=== PATIENT | female | born 1980 | race Caucasian/White ===

== ENCOUNTER 2019-07-26 17:16 | Inpatient (IN) | payer BC, OTHER, SELFPAY ==
[2019-07-26] VITALS (16 sets, daily range): BP systolic 67–93; BP diastolic 40–63; PULSE 91–107; RESP 17–25; TEMP 36.9; O2SAT 88–100; BMI 31.6
--- NOTE | ~2019-07-26 | XR_ITS ---
XR chest 2V 07/26/2019 18:53 Indication: Shortness of breath. Pneumonia. Productive cough. Procedure: 2 view chest Comparison: 12/31/2018 Findings: There is bibasilar airspace disease, compatible with pneumonia. No pleural effusion, edema or pneumothorax. Heart size normal. No acute osseous abnormality. Impression: 1: Bibasilar airspace disease, compatible with pneumonia. Reviewed, dictated and finalized at location A. [facility] Impression: 1: Bibasilar airspace disease, compatible with pneumonia.
--- NOTE | 2019-07-26 17:55 | ECG_ITS ---
Measurements Intervals [place] Rate: 81 P: 39 KS: 136 QRS: 44 QRSD: 89 T: 85 QT: 360 QTc: 420 Interpretive Statements SINUS RHYTHM INFERIOR INFARCT, AGE INDETERMINATE NONSPECIFIC ST & T-WAVE ABNORMALITY- LATERAL LEADS BASELINE ARTIFACT- V6 ABNORMAL ECG Electronically Signed On 07-26-2019 19:43:23 [employer]ACH[employer] by Dixon Rizzo D.O.
--- NOTE | 2019-07-26 17:56 | ED.SOB ---
HPI - SOB/Dyspnea General Chief Complaint: Shortness of Breath/Dyspnea Stated Complaint: feel like I have pneumonia Time Seen by Provider: 07/26/19 17:42 Source: patient Mode of arrival: ambulatory Limitations: no limitations History of Present Illness HPI Narrative: Patient is a 39-year-old female who presents to the emergency department with complaint of cough and shortness of breath. Patient reports onset of symptoms approximately 5 days ago. Patient reports associated headache, fatigue, subjective fever, chills, sweats. Patient reports having had some weight gain which prompted increasing her diuretic somewhat recently. Patient states she now has been noticing decreased urine output. She reports some decrease in her oral intake. Patient has known history of congestive heart failure and pulmonary hypertension as well as mitral regurgitation. MD elicited complaint: shortness of breath and cough Pertinent past history: asthma, congestive heart failure and pneumonia Onset (ago): day(s) (5) Timing: constant Known history of: asthma, congestive heart failure and other (Pneumonia, pulmonary hypertension) Associated symptoms: fever and cough Related Data Home oxygen amount: none Home Medications Medication Instructions Recorded Confirmed carvedilol 07/26/19 Allergies Allergy/AdvReac Type Severity Reaction Status Date / Time latex Allergy Mild RASH Verified 07/26/19 17:49 onion Allergy Mild Itching Verified 07/26/19 17:49 azithromycin Allergy Unknown Nausea Verified 07/26/19 17:49 chlorpheniramine Allergy Unknown insomnia Verified 07/26/19 17:49 [Scot-Tussin DM] dextromethorphan Allergy Unknown insomnia Verified 07/26/19 17:49 [Robafen DM Cough-Chest Congest] erythromycin base Allergy Unknown Nausea Verified 07/26/19 17:49 guaifenesin Allergy Unknown insomnia Verified 07/26/19 17:49 minocycline Allergy Unknown upset Verified 07/26/19 17:49 stomach Penicillins Allergy Unknown Mouth sore Verified 07/26/19 17:49 rabeprazole Allergy Unknown Nausea Verified 07/26/19 17:49 Influenza Virus Vaccines AdvReac Unknown NAUSEA/SWEA Verified 07/26/19 17:49 TING Cat Dander Allergy Severe Anaphylactic Uncoded 07/26/19 17:49 Shock Review of Systems Review of Systems: All systems reviewed & are unremarkable except as noted in HPI and below Constitutional: Constitutional: Reports chills, Reports excessive sweating, Reports fatigue, Reports fever(s), Reports headache(s) and Reports weakness Respiratory: Respiratory: Reports cough and Reports dyspnea PMFSH Past Medical History Medical History (Updated 07/26/19 @ 21:11 by Silvia Silver MD) ADHD CHF (congestive heart failure) Gastro-esophageal reflux disease without esophagitis Mitral regurgitation Moderate persistent asthma with (acute) exacerbation Pneumonia (~05/11/19) Pulmonary hypertension Syringomyelia and syringobulbia Surgical History Surgical History (Updated 07/26/19 @ 18:07 by Silvia Silver MD) Hx of bilateral breast reduction surgery Social History Social History (Updated 07/26/19 @ 18:07 by Silvia Silver MD) Smoking status: Current every day smoker Alcohol intake: never Gender identity (if verbalized by the patient): Female Exam Const: General: cooperative, no acute distress and alert Nutritional Appearance: well nourished Orientation/consciousness: patient oriented x3 Limitations: no limitations HENMT: Mouth: Yes lip normal and Yes moist mucous membranes Resp: Effort & Inspection: normal respiratory effort Auscultation: rhonchi lower bilaterally and diminished lung sounds bilateral throughout Cardio: Rate: regular rate Rhythm: regular rhythm Heart sounds: Murmur heart sound present Peripheral pulses: dorsalis pedis present bilateral 2+ GI: GI Palp: Yes Soft to palpation and No Tenderness to palpation present (GI) Auscultation: normal bowel sounds Skin: General skin exam: normal color Jose A
[2019-07-26] MEDS: LACTATED RINGERS 1,000 ML 999 ML (18:12)
[2019-07-26 19:04] LABS: Alanine Aminotransferase 16 U/L (4-35); Albumin Level 3.4 g/dL (3.5-5.1); Alkaline Phosphatase 93 U/L (38-126); Aspartate Amino Transferase 25 U/L (14-36); Bilirubin,Total 0.5 mg/dL (0.2-1.3); Blood Urea Nitrogen 15 mg/dL (7-17); Calcium 8.3 mg/dL (8.4-10.2); Carbon Dioxide 28 mmol/L (22-30); Chloride 94 mmol/L (98-107); Estimated CRCL calculation 49 ml/min; Estimated Glomerular Filt Rate 46; Glucose 119 mg/dL (65-105); Potassium 3.3 mmol/L (3.4-5.0); Sodium 135 mmol/L (137-145); Troponin I < 0.012 ng/mL (0.000-0.034)
[2019-07-26 19:05] LABS: Lactic Acid 1.4 mmol/L (0.7-2.1)
[2019-07-26 19:06] LABS: CRP 22.9 mg/dL (<1.0)
[2019-07-26 19:09] LABS: Basophils Percent Auto 0.2 % (0.2-1.2); Eosinophils Percent Auto 0.1 % (0-4.4); Hematocrit 39.5 % (37.0-47.0); Hemoglobin 12.7 g/dL (12.0-15.0); Immature Granulocyte Absolute 0.06 K/mm3 (0.00-0.031); Immature Granulocyte Percent A 0.5 % (0-0.5); Lymphocytes Absolute Auto 1.67 K/mm3 (0.9-3.2); Mean Corpuscular HGB Conc 32.2 g/dl (32-36); Mean Corpuscular Hemoglobin 30.8 pg (26-34); Mean Corpuscular Volume 95.6 fl (80-100); Mean Platelet Volume 11.6 fl (7.4-10.4); Monocytes Absolute Auto 0.8 K/mm3 (0.1-0.6); Monocytes Percent Auto 6.2 % (2.6-8.5); Neutrophils Absolute Auto 10.3 K/mm3 (1.3-6.7); Platelet Count Result 192 k/mm3 (150-375); Red Blood Count 4.13 M/mm3 (4.2-5.4); Red Cell Distribution Width 12.6 % (11.5-14.5); White Blood Count 12.8 K/mm3 (4.5-10.0)
[2019-07-26 19:21] LABS: INR 0.9; Prothrombin Time 11.6 Seconds (11.1-14.7)
[2019-07-26 19:25] LABS: Add Urine Microscopic? YES; Appearance Urine Cloudy (Clear); Bacteria Urine Trace /hpf; Bilirubin Urine Negative (Negative); Blood Urine Negative (Negative); Color Urine Amber (Yellow); Glucose Urine UA Negative (Negative); Hyaline Casts Urine 15-19 /lpf; Ketones Urine Negative (Negative); Leukocyte Esterase Ur 1+ LEU/UL (Negative); Mucus Urine Few /lpf; Nitrate Urine Negative (Negative); Protein Urine Negative (Negative); Specific Grav Ur 1.019 (1.001-1.035); Squamous Epithelial Cell Urine Many /hpf (Few); WBC Urine 31-50 /hpf
[2019-07-26] MEDS: MAG HYDROX/AL HYDROX/SIMETH 30 ML UDC PO (19:42)
[2019-07-26 20:15] LABS: NT Pro B Type Natriuretic Pept 62 PG/ML (5-100)
[2019-07-26] MEDS: LACTATED RINGERS 1,000 ML 999 ML IV CONT ×2 (20:51→21:24)
[2019-07-26] MEDS: OSELTAMIVIR PHOSPHATE 75 MG CAP PO (21:51)
--- NOTE | 2019-07-26 22:36 | ADMGEN ---
This patient, Enriqueta Quinn, was admitted to Intensive Care Unit-9. Patient/family oriented to hospital policies and general routines including ID bracelet, bed and alarms, visiting hours, pain management, procedures, bathroom and other care routines, personal items, smoking policy, room service/diet, and visiting hours. Valuables list has been completed. Information on how to activate the Rapid Response Team has been discussed. Patient/Family are encouraged to report perceived risks to care and to ask questions if they do not understand what they are told or what they should do.
[2019-07-26] MEDS: LACTATED RINGERS 1,000 ML 150 ML IV CONT (23:22)
[2019-07-26] MEDS: ACETAMINOPHEN 325 MG TABLET 650 MG PO (23:22)
--- NOTE | 2019-07-26 23:25 | PM.IMHP ---
H&P: HPI History of Present Illness Chief complaint: Shortness of breath, productive cough Narrative: Date and time of patient contact: 07/26/2019 at 11:25 p.m. Enriqueta Quinn is a 39 year old female with a past medical history of systolic and diastolic congestive heart failure, moderate mitral valve regurgitation, severe pulmonary hypertension and continued tobacco use who presented to the ER after 5 days of cough productive of green sputum and increasing shortness of breath. She has had associated headaches, body aches, subjective fever, chills, sweats and increasing fatigue. She has had rhinorrhea with a cough productive of green sputum. She has not noticed increased wheezing but she has significant wheezing on examination. She denies any recent ill contacts but states that she had an allergic reaction to the flu shot a few years ago and is unable to receive the flu shot. She was afebrile on arrival to the ER. She has had some chest discomfort associated with cough. She has been having some increased fatigue since her cardiac medications were changed in June but her fatigue has been significantly worse over the last 5 days. She denies any nausea or vomiting but admits that she has not had much oral intake at all. She has had decreased urine output over the last week but has continued to take her home Lasix, spironolactone and Entresto. She was recently started on spironolactone due to a weight gain of about 12 lb. After initiation of spironolactone her weight had went down 6 lb. She thought her weight had went back up but he was pacing weight on a bed scale weight obtained in the ER. She denies any lower extremity swelling. She does have chronic neck pain due to syringomyelia. She does have intermittent cramping of her right foot due to her syringomyelia. She has not been able to work since she was diagnosed with her heart failure in December of 2018. Due to his symptoms of dyspnea on exertion. Patient had chest x-ray performed in the ER which demonstrated bilateral lower lobe infiltrates. Her influenza screen performed in the ER was positive for influenza A. Initially when she presented to the ER she was hypotensive with blood pressures of low as 67/45. Patient received 3 L of isotonic fluid in the ER with improvement in her blood pressures have improved to 90 3/56 and 101/47 respectively. She carries a diagnosis of asthma but has not had any pulmonary function testing performed. Review of Systems Review of Systems: Narrative: Except as documented in the HPI, all other systems were reviewed and are negative. [facility] Past Medical History Medical History (Updated 07/27/19 @ 00:23 by Arabella Goldman DO) ADHD Asthma Combined systolic and diastolic heart failure Echocardiogram December 2018 demonstrated EF of 25-30% with diastolic dysfunction and elevated left atrial pressures, mild left atrial enlargement, mild mitral valve stenosis, moderate mitral valve regurgitation, severe pulmonary hypertension with RVSP of 65 Gastro-esophageal reflux disease without esophagitis Non-rheumatic mitral regurgitation Pneumonia (~05/11/19) Pulmonary hypertension Severe noted on echocardiogram December 2018 Syringomyelia and syringobulbia Ulnar fracture 2005 Surgical History Surgical History (Updated 07/26/19 @ 18:07 by Silvia Silver MD) Hx of bilateral breast reduction surgery Family History Family History (Updated 07/27/19 @ 00:12 by Arabella Goldman DO) Father Diabetes mellitus Hypertension Cerebrovascular accident Hyperlipidemia Mother Hypertension Hyperlipidemia Grandparent Ovarian cancer Sibling , at age 41 of premature coronary artery disease Acute myocardial infarction, Onset Age: 41 2019 Diabetes mellitus Social History Social History (Updated 07/27/19 @ 00:11 by Arabella Goldman DO) Social History: The patient reports that she has not had the chance to smoke in the last 5
[2019-07-27] VITALS (17 sets, daily range): BP systolic 87–116; BP diastolic 50–75; PULSE 70–95; RESP 16–23; TEMP 36.6–37.4; O2SAT 91–98
[2019-07-27] MEDS: HEPARIN SODIUM 5,000 UNITS/ML VIAL 5000 UNITS SUB-Q ×3 (06:04→21:00)
[2019-07-27] MEDS: LACTATED RINGERS 1,000 ML 150 ML IV CONT (06:04)
[2019-07-27] MEDS: OSELTAMIVIR PHOSPHATE 75 MG CAP PO ×2 (09:08→20:57)
[2019-07-27] MEDS: ALBUTEROL SULFATE NEB 2.5 MG/0.5 ML INH 5 MG INHALATION ×3 (09:34→20:29)
[2019-07-27] MEDS: IPRATROPIUM BR 0.02% INH SOLN 0.5 MG/2.5 ML VIAL INHALATION ×3 (09:35→20:29)
--- NOTE | 2019-07-27 10:24 | PM.IMPN ---
Progress Note: A&P Assessment and Plan (1) Pneumonia due to influenza A virus: Qualifiers: Laterality: bilateral Lung location: lower lobe of lung Qualified Code(s): J11.00 - Influenza due to unidentified influenza virus with unspecified type of pneumonia Code(s): J10.00 - Influenza due to other identified influenza virus with unspecified type of pneumonia Status: Acute Assessment and Plan: Continue ceftriaxone Substitute doxycycline for a azithromycin due to cardiomyopathy (2) Sepsis: Qualifiers: Sepsis acute organ dysfunction status: without acute organ dysfunction Sepsis type: sepsis due to unspecified organism Qualified Code(s): A41.9 - Sepsis, unspecified organism Code(s): A41.9 - Sepsis, unspecified organism Status: Acute Assessment and Plan: Resolving (3) Hypotension: Qualifiers: Hypotension type: hypotension due to hypovolemia Qualified Code(s): I95.89 - Other hypotension; E86.1 - Hypovolemia Code(s): I95.9 - Hypotension, unspecified Status: Acute Assessment and Plan: Cardiomyopathy and antihypertensive medication are contributing factors Pneumonia and sepsis playing a role as well (4) Moderate persistent asthma with (acute) exacerbation: Code(s): J45.41 - Moderate persistent asthma with (acute) exacerbation Status: Acute Assessment and Plan: Added prednisone 07/27 (5) Tachycardia: Code(s): R00.0 - Tachycardia, unspecified Status: Acute Assessment and Plan: Chronic per patient history (6) Combined systolic and diastolic heart failure: Qualifiers: Heart failure chronicity: chronic Qualified Code(s): I50.42 - Chronic combined systolic (congestive) and diastolic (congestive) heart failure Code(s): I50.40 - Unspecified combined systolic (congestive) and diastolic (congestive) heart failure Status: Acute Assessment and Plan: Clinically euvolemic Cardiology to re-evaluate her regimen (7) Tobacco abuse disorder: Code(s): Z72.0 - Tobacco use Status: Acute Assessment and Plan: Patient aware of need to quit Subjective Date/time seen: 07/27/19 10:24 Interval history: Admitted July 26 with community-acquired pneumonia. Still coughing with green sputum. Dyspnea on exertion. No chest pain or swelling. No fevers or chills. No abdominal pain nausea vomiting or diarrhea. No abnormal bleeding. Since call red was increased and June she has felt tired and lightheaded. Would like Dr. her gut dropper about resuming a previous dose or an alternative medication. Review of Systems Review of Systems: All systems reviewed & are unremarkable except as noted in HPI and below Exam Narrative: Exam Narrative: HEENT: EOMI, PERRL, pharyngeal mucosa pink and intact NECK: No JVD, adenopathy, or thyromegaly CHEST: Coarse crackles left lower lobe and right base with rhonchi bilaterally HEART: NL S1/S2, regular, no murmur ABDOMEN: BS+, soft, nontender, no mass, no bruits EXTREMITIES: No cyanosis, edema, or clubbing NEUROLOGIC: CN intact and symmetric to inspection. MUSCULOSKELETAL: Tone and strength symmetric. PSYCH: Alert. Oriented to person, place, and time. Objective Data Vital Signs Vital Signs: Vital Signs - 24 hr 07/26/19 17:18 07/26/19 17:35 07/26/19 17:48 Temperature 98.4 F Pulse Rate 107 H 102 H 105 H Respiratory Rate 18 21 H Blood Pressure 89/51 L 83/55 L Pulse Oximetry 99 100 07/26/19 17:49 07/26/19 17:55 07/26/19 17:56 Temperature Pulse Rate 98 105 H 104 H Respiratory Rate 22 H Blood Pressure 67/45 L 78/42 L 80/40 L Pulse Oximetry 100 07/26/19 18:15 07/26/19 18:16 07/26/19 18:27 Temperature Pulse Rate 95 98 99 Respiratory Rate 21 H 17 20 Blood Pressure 90/58 L 91/63 L Pulse Oximetry 100 100 88 L 07/26/19 19:32 07/26/19 19:49 07/26/19 20:40 Temperature Pulse Rate 104 H
--- NOTE | 2019-07-27 11:22 | PCRCNOTE ---
07/27/19 0200 nebulizer treatment not given. Window of time for administration has passed. See next scheduled administration.
[2019-07-27] MEDS: predniSONE 20 MG TABLET 40 MG PO (11:33)
[2019-07-27] MEDS: PANTOPRAZOLE 40 MG TABLET PO (11:34)
[2019-07-27] MEDS: DOXYCYCLINE HYCLATE 100 MG TABLET PO (20:57)
--- NOTE | 2019-07-27 22:06 | PC.NURSE ---
Report called to SHAWNA Ortega on sindhu-surg. Pt to transfer to room 326.
--- NOTE | 2019-07-27 22:32 | PC.NURSE ---
Report received from SHAWNA Dean in ICU. Patient received to room from ICU 9 into room 326 at 2220. Patient settled and updated to floor policy.
[2019-07-28] VITALS (8 sets, daily range): BP systolic 119–127; BP diastolic 64–86; PULSE 88–113; RESP 14–20; TEMP 36.3–37.3; O2SAT 97–98
[2019-07-28] MEDS: IPRATROPIUM BR 0.02% INH SOLN 0.5 MG/2.5 ML VIAL INHALATION ×3 (02:45→14:21)
[2019-07-28] MEDS: ALBUTEROL SULFATE NEB 2.5 MG/0.5 ML INH 5 MG INHALATION ×3 (02:46→14:21)
[2019-07-28] MEDS: HEPARIN SODIUM 5,000 UNITS/ML VIAL 5000 UNITS SUB-Q ×2 (05:23→13:26)
[2019-07-28 06:44] LABS: Hematocrit 32.2 % (37.0-47.0); Hemoglobin 10.7 g/dL (12.0-15.0); Mean Corpuscular HGB Conc 33.2 g/dl (32-36); Mean Corpuscular Hemoglobin 30.8 pg (26-34); Mean Corpuscular Volume 92.8 fl (80-100); Mean Platelet Volume 10.8 fl (7.4-10.4); Platelet Count Result 162 k/mm3 (150-375); Red Blood Count 3.47 M/mm3 (4.2-5.4); Red Cell Distribution Width 12.2 % (11.5-14.5); White Blood Count 9.7 K/mm3 (4.5-10.0)
[2019-07-28 07:06] LABS: Blood Urea Nitrogen 7 mg/dL (7-17); Carbon Dioxide 25 mmol/L (22-30); Chloride 103 mmol/L (98-107); Estimated CRCL calculation 101 ml/min; Estimated Glomerular Filt Rate > 60; Glucose 226 mg/dL (65-105); Potassium 3.3 mmol/L (3.4-5.0); Sodium 139 mmol/L (137-145)
[2019-07-28] MEDS: POTASSIUM CHLORIDE 20 MEQ PACKET (FOR LIQUID) 40 MEQ PO (09:51)
[2019-07-28] MEDS: predniSONE 20 MG TABLET 40 MG PO (09:51)
[2019-07-28] MEDS: OSELTAMIVIR PHOSPHATE 75 MG CAP PO (09:52)
[2019-07-28] MEDS: DOXYCYCLINE HYCLATE 100 MG TABLET PO (09:53)
[2019-07-28] MEDS: PANTOPRAZOLE 40 MG TABLET PO (09:53)
--- NOTE | 2019-07-28 12:38 | PM.CNCAR ---
Assessment and Plan Assessment and plan (1) Influenza A: Code(s): J10.1 - Influenza due to other identified influenza virus with other respiratory manifestations Status: Acute Assessment and Plan: Patient admitted with influenza a, and has been receiving Tamiflu. She has had symptomatic improvement. Patient has had infections in the past to include pneumonia. She has relatively young. Her immunological status is being checked including HIV status and hemoglobin levels. (2) Combined systolic and diastolic heart failure: Qualifiers: Heart failure chronicity: chronic Qualified Code(s): I50.42 - Chronic combined systolic (congestive) and diastolic (congestive) heart failure Code(s): I50.40 - Unspecified combined systolic (congestive) and diastolic (congestive) heart failure Status: Acute Assessment and Plan: Patient was hypotensive upon admission. Blood pressure is improving. Resume patient's CHF medications at a lower dose. Resume carvedilol at 3.125 mg p.o. b.i.d.. Resume Entresto at 49/51 p.o. b.i.d. Outpatient follow-up in the Cardiology Clinic in 4-6 weeks or sooner if needed. (3) Hypotension: Qualifiers: Hypotension type: hypotension due to hypovolemia Qualified Code(s): I95.89 - Other hypotension; E86.1 - Hypovolemia Code(s): I95.9 - Hypotension, unspecified Status: Acute Assessment and Plan: Blood pressure has improved History of Present Illness History of Present Illness Consult date/time: 07/28/19 12:38 Date of consult: 07/28/2019 Reason for consult: Shortness of breath, CHF Requesting physician:Dr Ayala Chief complaint: Cough, congestion, shortness of breath HPI: 39-year-old female with chronic systolic and diastolic CHF (LVEF 41% on recent cardiac MRI), history of moderate MR (trivial MR on recent cardiac MRI), pulmonary hypertension, tobacco abuse. Patient was admitted to [facility] on 07/26/2019 with complaints of cough, congestion that started about 1 week prior to admission. She had mild chest discomfort during coughing. Patient has baseline dyspnea on exertion, NYHA function class 3 symptoms. Patient did not have influenza vaccination this year. She had reported some questionable intolerance in the past. Patient was found to have influenza a, and has been receiving Tamiflu. Her symptoms are improving now. At the time of admission, patient's blood pressure was low in 80s over 50s. Hersacubitril/valsartan, and carvedilol was put on hold. EKG which I personally evaluated showed sinus rhythm with nonspecific ST-T abnormalities. Chest x-ray reports bibasilar airspace disease suggestive of pneumonia. Reason For Visit: Shortness of breath, productive cough Review of Systems Constitutional: Constitutional: Denies chills, Reports fatigue, Denies fever(s) and Denies headache(s) Comments: weight loss Eyes: Eyes: Reports as per HPI, Denies change in vision, Denies loss of vision and Denies eye pain ENT: Reports as per HPI, Reports Normal hearing present, Denies headache(s), Denies lip swelling, Denies epistaxis and Denies sore throat Cardiovascular: Cardiovascular: Reports as per HPI, Denies chest pain, Denies syncope, Denies irregular heart rhythm, Denies lightheadedness and Denies dyspnea Respiratory: Respiratory: Reports as per HPI, Reports cough, Reports dyspnea and Denies wheezing Gastrointestinal: Gastrointestinal: Reports as per HPI, Denies abdominal pain, Denies melena, Denies nausea and Denies vomiting Genitourinary: Genitourinary: Reports as per HPI Musculoskeletal: Musculoskeletal: Reports as per HPI, Denies myalgias, Denies muscle cramps and Denies muscle weakness Integumentary/Breasts: Skin/Breast: Reports as per HPI, Denies pruritus and Denies rash Neurologic: Reports as per HPI, Reports Normal hearing present, Denies behavioral changes, Denies syncope, Denies headache(s) and Denies loss of vision Psychiatric: Psy
[2019-07-28] MEDS: POTASSIUM CHLORIDE 20 MEQ TABLET 40 MEQ PO (13:26)
--- NOTE | 2019-07-28 16:51 | PM.DS ---
DS: Diagnosis Admitting Diagnosis Admitting Diagnosis: Sepsis, unspecified organism Discharge Diagnosis (1) Pneumonia due to influenza A virus: Qualifiers: Laterality: bilateral Lung location: lower lobe of lung Qualified Code(s): J11.00 - Influenza due to unidentified influenza virus with unspecified type of pneumonia Code(s): J10.00 - Influenza due to other identified influenza virus with unspecified type of pneumonia Status: Acute Assessment and Plan: Continued ceftriaxone during hospitalization Substituted doxycycline for a azithromycin due to cardiomyopathy Five days cefdinir and doxycycline and 3 days Tamiflu at discharge (2) Sepsis: Qualifiers: Sepsis acute organ dysfunction status: without acute organ dysfunction Sepsis type: sepsis due to unspecified organism Qualified Code(s): A41.9 - Sepsis, unspecified organism Code(s): A41.9 - Sepsis, unspecified organism Status: Acute Assessment and Plan: Resolving (3) Hypotension: Qualifiers: Hypotension type: hypotension due to hypovolemia Qualified Code(s): I95.89 - Other hypotension; E86.1 - Hypovolemia Code(s): I95.9 - Hypotension, unspecified Status: Acute Assessment and Plan: Cardiomyopathy and antihypertensive medication are contributing factors Pneumonia and sepsis playing a role as well (4) Moderate persistent asthma with (acute) exacerbation: Code(s): J45.41 - Moderate persistent asthma with (acute) exacerbation Status: Acute Assessment and Plan: Added prednisone 07/27 (5) Tachycardia: Code(s): R00.0 - Tachycardia, unspecified Status: Acute Assessment and Plan: Chronic per patient history (6) Combined systolic and diastolic heart failure: Qualifiers: Heart failure chronicity: chronic Qualified Code(s): I50.42 - Chronic combined systolic (congestive) and diastolic (congestive) heart failure Code(s): I50.40 - Unspecified combined systolic (congestive) and diastolic (congestive) heart failure Status: Acute Assessment and Plan: Clinically euvolemic Restart low dose Coreg and Entresto. (7) Tobacco abuse disorder: Code(s): Z72.0 - Tobacco use Status: Acute Assessment and Plan: Patient aware of need to quit DS: Summary Hospital Course Reason for hospitalization: Cough and dyspnea Hospital Course: Admitted with cough and dyspnea found to be flu positive. Treated with vancomycin ceftriaxone and doxycycline as well as Tamiflu and prednisone. Gradually improved. Was tolerating diet. Off oxygen by day of discharge. Up and about without difficulty. No chest pain. Mild dyspnea on exertion. Wished to go home. Time Spent with Patient Time attestation: Total time spent providing and/or coordinating discharge services: 35 min Exam Narrative: Exam Narrative: HEENT: EOMI, PERRL, pharyngeal mucosa pink and intact NECK: No JVD, adenopathy, or thyromegaly CHEST: Coarse crackles left lower lobe and right base with rhonchi bilaterally HEART: NL S1/S2, regular, no murmur ABDOMEN: BS+, soft, nontender, no mass, no bruits EXTREMITIES: No cyanosis, edema, or clubbing NEUROLOGIC: CN intact and symmetric to inspection. MUSCULOSKELETAL: Tone and strength symmetric. PSYCH: Alert. Oriented to person, place, and time. DS: Data Data Completed and Pending Labs on day of discharge: Labs from last 24 hours 07/28/19 07/28/19 07/28/19 14:54 06:35 06:35 WBC 9.7 RBC 3.47 L Hgb 10.7 L Hct 32.2 L MCV 92.8 MCH 30.8 MCHC 33.2 RDW 12.2 Plt Count 162 MPV 10.8 H Sodium 139 Potassium 3.3 L Chloride 103 Carbon Dioxide 25 BUN 7 D Creatinine 0.60 L Estim Creat Clear Calc 101 Estimated GFR > 60 Glucose 226 H Calcium 8.0 L Immunoglobulin A Pending Immunoglobulin G Pending Immunoglobulin M Pending Preliminary mi
--- NOTE | 2019-07-28 19:57 | PC.NURSE ---
Patient discharged @191, both IV lines removed, discharge instructions verified. Patient requested meds be sent to the [facility] in [place]. Dr. Tam notified. Patient refused to stay for correct/updated documentation on where her medication was sent.
--- NOTE | 2019-07-28 20:09 | PC.NURSE ---
This nurse called Dr. Tam and verified the new pharmacy for this patient. Dr. Tam verbalized he would call the scripts in for this patient.
[2019-07-30 21:10] LABS: Immunoglobulin A 239 mg/dL (47-310); Immunoglobulin G 1012 mg/dL (600-1640); Immunoglobulin M 118 mg/dL (50-300)
== END 2019-07-28 19:15 | disposition home or self-care (01) | DRG 871 ==
LOC: ANHED 21:11 → ANHICU 23:37 → ANH3MEDSUR 07-28 16:53 → ANHICU 07-31 16:05
PROVIDERS: Admitting Provider Internal Medicine; Emergency Provider Emergency Medicine; PCP Family Medicine; Visit Provider Internal Medicine
DX: A41.89 Other specified sepsis (principal); J10.00 Influenza due to other identified influenza virus with unspecified type of pneumonia; J45.41 Moderate persistent asthma with (acute) exacerbation; I50.42 Chronic combined systolic (congestive) and diastolic (congestive) heart failure; I95.89 Other hypotension; E86.1 Hypovolemia; R00.0 Tachycardia, unspecified; F90.9 Attention-deficit hyperactivity disorder, unspecified type; K21.9 Gastro-esophageal reflux disease without esophagitis; I34.0 Nonrheumatic mitral (valve) insufficiency; I27.20 Pulmonary hypertension, unspecified; F17.210 Nicotine dependence, cigarettes, uncomplicated
CPT/HCPCS: 36415; 71046; 80048; 80053; 81001; 82784; 83605; 83880; 84484; 85025; 85027; 85610; 85730; 86140; 87040; 87077; 87086; 87088; 87804; 93005; 94640; 96361; 96365; 96368; 96375; 99285; A9270; J0131; J0456; J0696; J1644; J3370; J7120; J7512

== ENCOUNTER 2020-03-30 12:17 | Emergency (ER) | payer OTHER, SELFPAY ==
--- NOTE | ~2020-03-30 | XR_ITS ---
EXAMINATION: XR chest 1V portable DATE: 03/30/2020 13:09 INDICATION: Congested, cough, shortness of breath and chest pain. TECHNIQUE: frontal view of the chest was obtained. COMPARISON: Chest radiograph dated 07/26/2019 FINDINGS: The lungs are now clear with no focal airspace opacities, pulmonary edema, pleural effusion or pneumo thorax. The cardiomediastinal silhouette is normal. Visualized bones and soft tissues are unremarkabl e. IMPRESSION: 1. No acute cardiopulmonary disease. Reviewed, dictated and finalized at location A.
[2020-03-30 12:26] VITALS: BP 102/75; PULSE 109; RESP 18; TEMP 36.6; O2SAT 100
[2020-03-30] MEDS: ACETAMINOPHEN 500 MG TABLET 1000 MG PO (13:30)
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
[2020-03-31 11:16] LABS: SARS-CoV-2 RNA PCR Negative
== END 2020-03-30 13:40 | disposition home or self-care (01) ==
PROVIDERS: Emergency Medicine Emergency Medical Services; Emergency Provider Emergency Medicine; PCP Family Medicine
DX: J06.9 Acute upper respiratory infection, unspecified (principal); Z20.828 Contact with and (suspected) exposure to other viral communicable diseases; I50.40 Unspecified combined systolic (congestive) and diastolic (congestive) heart failure; K21.9 Gastro-esophageal reflux disease without esophagitis; I27.20 Pulmonary hypertension, unspecified; F17.210 Nicotine dependence, cigarettes, uncomplicated
CPT/HCPCS: 71045; 87635; 87804; 99283; A9270; C9803; U0003

== ENCOUNTER 2020-07-16 10:49 | Outpatient (CLI) | payer OTHER, SELFPAY ==
[2020-07-16 11:59] LABS: Beta HCG Quantitative < 2.39 mIU/ML
[2020-07-19 07:10] LABS: FSH 11.4 mIU/mL (***); LH 12.6 mIU/mL (***); Prolactin 10.9 ng/mL (***)
[2020-07-21 16:37] LABS: Estradiol, Ultrasensitive 105 pg/mL
== END 2020-07-16 10:50 | disposition home or self-care (01) ==
LOC: ANHLAB 10:51
PROVIDERS: PCP Physician Assistant; Visit Provider Internal Medicine Cardiovascular Disease
DX: N91.2 Amenorrhea, unspecified (principal); R00.0 Tachycardia, unspecified
CPT/HCPCS: 36415; 82670; 83001; 83002; 84146; 84702

== ENCOUNTER 2021-01-08 08:21 | Outpatient (CLI) | payer OTHER, SELFPAY ==
[2021-01-08 09:49] LABS: Basophils Percent Auto 0.5 % (0.2-1.2); Eosinophils Absolute Auto 0.4 K/mm3 (0-0.3); Eosinophils Percent Auto 5.3 % (0-4.4); Hemoglobin 12.3 g/dL (12.0-15.0); Immature Granulocyte Absolute 0.01 K/mm3 (0.00-0.031); Immature Granulocyte Percent A 0.2 % (0-0.5); Lymphocytes Absolute Auto 2.46 K/mm3 (0.9-3.2); Lymphocytes Percent Auto 37.6 % (18.3-44.2); Mean Corpuscular HGB Conc 32.4 g/dl (32-36); Mean Corpuscular Hemoglobin 30.5 pg (26-34); Mean Corpuscular Volume 94.3 fl (80-100); Mean Platelet Volume 10.4 fl (7.4-10.4); Monocytes Absolute Auto 0.5 K/mm3 (0.1-0.6); Monocytes Percent Auto 8.1 % (2.6-8.5); Neutrophils Absolute Auto 3.2 K/mm3 (1.3-6.7); Neutrophils Percent Auto 48.3 % (45.5-73.1); Platelet Count Result 227 k/mm3 (150-375); Red Blood Count 4.03 M/mm3 (4.2-5.4); Red Cell Distribution Width 13.2 % (11.5-14.5); White Blood Count 6.6 K/mm3 (4.5-10.0)
[2021-01-08 10:02] LABS: Alanine Aminotransferase 18 U/L (4-35); Alkaline Phosphatase 120 U/L (38-126); Anion Gap 7 mmol/L (8-16); Aspartate Amino Transferase 25 U/L (14-36); Bilirubin,Total 0.6 mg/dL (0.2-1.3); Blood Urea Nitrogen 9 mg/dL (7-17); Calcium 9.2 mg/dL (8.4-10.2); Carbon Dioxide 29 mmol/L (22-30); Chloride 100 mmol/L (98-107); Cholesterol 133 mg/dL (0-200); Estimated Glomerular Filt Rate > 60; Glucose 104 mg/dL (65-110); HDL Direct 60 mg/dL; Potassium 4.2 mmol/L (3.4-5.0); Sodium 136 mmol/L (137-145); Triglycerides 89 mg/dL (<150)
[2021-01-08 10:13] LABS: LDL Cholesterol Direct 45 mg/dL
[2021-01-08 10:30] LABS: Thyroid Stimulating Hormone 0.823 uIU/mL (0.465-4.680)
[2021-01-08 10:35] LABS: Free T4 Free Thyroxine 1.38 ng/mL (0.78-2.19)
[2021-01-10 05:17] LABS: Triiodothyronine T3 Free 4.1 pg/mL (2.3-4.2)
== END 2021-01-08 08:22 | disposition home or self-care (01) ==
LOC: ANHLAB 08:27
PROVIDERS: PCP Family Medicine; Visit Provider Physician Assistant
DX: R79.89 Other specified abnormal findings of blood chemistry (principal); I50.9 Heart failure, unspecified; E66.9 Obesity, unspecified; Z79.899 Other long term (current) drug therapy
CPT/HCPCS: 36415; 80053; 80061; 84439; 84443; 84481; 85025

== ENCOUNTER 2021-06-01 03:25 | Emergency (ER) | payer OTHER, SELFPAY ==
[2021-06-01] VITALS (16 sets, daily range): BP systolic 92–119; BP diastolic 68–85; PULSE 77–110; RESP 13–30; TEMP 36.6; O2SAT 100
--- NOTE | ~2021-06-01 | US_ITS ---
EXAMINATION: US venous doppler LE EXAM DATE: 06/01/2021 07:37 INDICATION: Bilateral leg swelling. TECHNIQUE: Multiple grayscale, color flow and Doppler images of the lower extremity deep venous syste ms bilaterally were obtained and reviewed. Comparison is made to prior examination from 01/10/2019. FINDINGS: Right side: The right common femoral, femoral and profunda veins demonstrate normal color flow, respi ratory variation, augmentation and compressibility. Compressibility, color flow confirmed within the right popliteal, posterior tibial, peroneal, and greater saphenous veins. Left side: The left common femoral, femoral and profunda veins demonstrate normal color flow, respira tory variation, augmentation and compressibility. Compressibility, color flow confirmed within the l eft popliteal, posterior tibial, peroneal, and greater saphenous veins. IMPRESSION: 1. No lower extremity deep venous thrombosis bilaterally. Reviewed, dictated and finalized at location A. OR TECHNICAL BUSINESS ANALYST
--- NOTE | ~2021-06-01 | XR_ITS ---
EXAMINATION: XR chest 2V DATE: 06/01/2021 04:09 INDICATION: Congestive heart failure. Bilateral lower extremity swelling. TECHNIQUE: PA and lateral views of the chest were obtained. COMPARISON: Chest radiograph dated 03/30/2020 FINDINGS: The lungs remain clear with no focal airspace opacities, pulmonary edema, pleural effusion or pneumot horax. The cardiomediastinal silhouette is normal. Visualized bones and soft tissues are unremarkable . IMPRESSION: 1. No acute cardiopulmonary disease. Reviewed, dictated and finalized at location H. HEN CLERK
--- NOTE | 2021-06-01 03:58 | ECG_ITS ---
Measurements Intervals [place] Rate: 84 P: 33 MT: 150 QRS: 29 QRSD: 92 T: 44 QT: 363 QTc: 431 Interpretive Statements SINUS RHYTHM MINIMAL Q WAVES- DIFFUSE LEADS BORDERLINE ECG Electronically Signed On 06-01-2021 6:38:11 ACCOUNT REVIEW SPECIALIST by Dixon Rizzo D.O.
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
[2021-06-01 04:46] LABS: Basophils Percent Auto 0.3 % (0.2-1.2); Eosinophils Absolute Auto 0.3 K/mm3 (0-0.3); Hematocrit 35.7 % (37.0-47.0); Hemoglobin 11.7 g/dL (12.0-15.0); Immature Granulocyte Absolute 0.03 K/mm3 (0.00-0.031); Immature Granulocyte Percent A 0.3 % (0-0.5); Lymphocytes Absolute Auto 2.73 K/mm3 (0.9-3.2); Lymphocytes Percent Auto 28.6 % (18.3-44.2); Mean Corpuscular HGB Conc 32.8 g/dl (32-36); Mean Corpuscular Hemoglobin 30.3 pg (26-34); Mean Corpuscular Volume 92.5 fl (80-100); Mean Platelet Volume 9.9 fl (7.4-10.4); Monocytes Absolute Auto 0.5 K/mm3 (0.1-0.6); Monocytes Percent Auto 5.5 % (2.6-8.5); Neutrophils Percent Auto 62.3 % (45.5-73.1); Platelet Count Result 239 k/mm3 (150-375); Red Blood Count 3.86 M/mm3 (4.2-5.4); Red Cell Distribution Width 12.9 % (11.5-14.5); White Blood Count 9.6 K/mm3 (4.5-10.0)
[2021-06-01 04:55] LABS: INR 0.9; Prothrombin Time 12.1 Seconds (11.1-14.7)
[2021-06-01 04:56] LABS: Partial Thromboplastin Time 30.9 SECONDS (22.3-36.8)
[2021-06-01 04:59] LABS: Anion Gap 2 mmol/L (8-16); Blood Urea Nitrogen 7 mg/dL (7-17); Calcium 8.8 mg/dL (8.4-10.2); Carbon Dioxide 29 mmol/L (22-30); Chloride 102 mmol/L (98-107); Estimated Glomerular Filt Rate > 60; Glucose 151 mg/dL (65-110); Potassium 3.4 mmol/L (3.4-5.0); Sodium 133 mmol/L (137-145)
[2021-06-01 05:25] LABS: NT Pro B Type Natriuretic Pept 168 pg/mL (5-100)
== END 2021-06-01 08:00 | disposition home or self-care (01) ==
PROVIDERS: Emergency Provider Emergency Medicine; PCP Family Medicine
DX: R60.0 Localized edema (principal); I50.40 Unspecified combined systolic (congestive) and diastolic (congestive) heart failure; J45.909 Unspecified asthma, uncomplicated; K21.9 Gastro-esophageal reflux disease without esophagitis; I34.0 Nonrheumatic mitral (valve) insufficiency; I27.20 Pulmonary hypertension, unspecified; Z87.01 Personal history of pneumonia (recurrent); G95.0 Syringomyelia and syringobulbia; Z87.891 Personal history of nicotine dependence
CPT/HCPCS: 36415; 71046; 80048; 83880; 85025; 85610; 85730; 93005; 93970; 99284

== ENCOUNTER 2022-07-28 14:10 | Outpatient (CLI) | payer OTHER, SELFPAY ==
[2022-07-28 15:46] LABS: Basophils Percent Auto 0.6 % (0.2-1.2); Eosinophils Absolute Auto 0.4 K/mm3 (0-0.3); Eosinophils Percent Auto 5.5 % (0-4.4); Hematocrit 38.9 % (37.0-47.0); Hemoglobin 12.6 g/dL (12.0-15.0); Immature Granulocyte Absolute 0.01 K/mm3 (0.00-0.031); Immature Granulocyte Percent A 0.2 % (0-0.5); Lymphocytes Absolute Auto 2.14 K/mm3 (0.9-3.2); Lymphocytes Percent Auto 32.5 % (18.3-44.2); Mean Corpuscular HGB Conc 32.4 g/dl (32-36); Mean Corpuscular Hemoglobin 30.5 pg (26-34); Mean Corpuscular Volume 94.2 fl (80-100); Mean Platelet Volume 10.5 fl (7.4-10.4); Monocytes Absolute Auto 0.5 K/mm3 (0.1-0.6); Monocytes Percent Auto 7.4 % (2.6-8.5); Neutrophils Absolute Auto 3.5 K/mm3 (1.3-6.7); Neutrophils Percent Auto 53.8 % (45.5-73.1); Platelet Count Result 183 k/mm3 (150-375); Red Blood Count 4.13 M/mm3 (4.2-5.4); Red Cell Distribution Width 12.8 % (11.5-14.5); White Blood Count 6.6 K/mm3 (4.5-10.0)
[2022-07-28 15:56] LABS: Alanine Aminotransferase 25 U/L (6-35); Albumin Level 4.1 g/dL (3.5-5.1); Alkaline Phosphatase 89 U/L (38-126); Anion Gap 4 mmol/L (8-16); Aspartate Amino Transferase 31 U/L (14-36); Bilirubin,Total 0.5 mg/dL (0.2-1.3); Blood Urea Nitrogen 12 mg/dL (7-17); Calcium 8.4 mg/dL (8.4-10.2); Carbon Dioxide 33 mmol/L (22-30); Chloride 98 mmol/L (98-107); Cholesterol 162 mg/dL (0-200); Estimated Glomerular Filt Rate > 60; Glucose 93 mg/dL (65-110); HDL Direct 60 mg/dL; Potassium 3.7 mmol/L (3.4-5.0); Sodium 135 mmol/L (137-145); Triglycerides 114 mg/dL (<150)
[2022-07-28 16:08] LABS: LDL Cholesterol Direct 58 mg/dL
[2022-07-28 16:33] LABS: Free T4 Free Thyroxine 1.19 ng/mL (0.78-2.19)
[2022-08-01 03:59] LABS: Triiodothyronine T3 Free 3.4 pg/mL (2.3-4.2)
== END 2022-07-28 14:11 | disposition home or self-care (01) ==
PROVIDERS: PCP Family Medicine; Visit Provider Physician Assistant
DX: R79.89 Other specified abnormal findings of blood chemistry (principal); E87.6 Hypokalemia; D64.9 Anemia, unspecified
CPT/HCPCS: 36415; 80053; 80061; 84439; 84443; 84481; 85025

== ENCOUNTER 2022-10-15 06:56 | Outpatient (CLI) | payer OTHER, SELFPAY ==
--- NOTE | ~2022-10-15 | MR_ITS ---
MRI of the cervical spine Clinical History: Neck pain Technique: Axial T2-weighted and gradient images, and sagittal T1-weighted, T2-weighted, and STIR heather ges were acquired. COMPARISON: 08/27/2014 Findings: There is no fracture or subluxation of the cervical spine. There is mild reversal normal ce rvical lordosis. Osseous alignment is essentially unchanged from prior exam. No suspicious bone marro w signal abnormality seen. At C2-C3, there is no disc bulge or herniation. No spinal canal stenosis, cord compression, or neural foraminal narrowing. At C3-C4, there is no significant disc bulge or herniation. No spinal canal stenosis, cord compressio n, or neural foraminal narrowing. At C4-C5, there is no significant disc bulge or herniation. No spinal canal stenosis, cord compressio n, or neural foraminal narrowing. At C5-C6, there is mild disc osteophyte complex. There is probable minimal flattening the ventral cor d. There is mild bilateral neural foraminal narrowing, left worse than right. At C6-C7, there is minimal disc osteophyte complex, without spinal canal stenosis or cord compression . There is mild left neural foraminal narrowing. Right neural foramen preserved. No abnormal signal seen in the spinal cord. Paravertebral soft tissues are unremarkable. Impression: Mild degenerative spondylosis at C5-C6 and C6-C7, as detailed above. Reviewed, dictated and finalized at [facility]. Impression: Mild degenerative spondylosis at C5-C6 and C6-C7, as detailed above.
== END 2022-10-15 06:57 | disposition home or self-care (01) ==
PROVIDERS: PCP Family Medicine; Visit Provider Physician Assistant
DX: G95.0 Syringomyelia and syringobulbia (principal); M47.812 Spondylosis without myelopathy or radiculopathy, cervical region
CPT/HCPCS: 72141

== ENCOUNTER 2023-05-23 14:17 | Outpatient (CLI) | payer OTHER, SELFPAY ==
[2023-05-26 12:09] LABS: Testosterone Total 9 ng/dL (2-45)
[2023-05-28 06:40] LABS: FSH 117.7 mIU/mL (***); LH 34.2 mIU/mL (***); Progesterone <0.2 ng/mL (***)
[2023-06-02 17:03] LABS: Estrogen 46 pg/mL
== END 2023-05-23 14:18 | disposition home or self-care (01) ==
LOC: ANHGOSHLAB 14:19
PROVIDERS: PCP Family Medicine; Visit Provider Nurse Practitioner Family
DX: N91.2 Amenorrhea, unspecified (principal)
CPT/HCPCS: 36415; 82672; 83001; 83002; 84144; 84402; 84403

== ENCOUNTER 2023-11-09 11:58 | Outpatient (CLI) | payer OTHER, SELFPAY ==
[2023-11-09 12:50] LABS: Basophils Absolute Auto 0.1 K/mm3 (0.0-0.1); Basophils Percent Auto 0.6 % (0.2-1.2); Eosinophils Percent Auto 12.5 % (0-4.4); Hematocrit 40.6 % (37.0-47.0); Hemoglobin 13.2 g/dL (12.0-15.0); Immature Granulocyte Absolute 0.01 K/mm3 (0.00-0.031); Immature Granulocyte Percent A 0.1 % (0-0.5); Lymphocytes Absolute Auto 2.66 K/mm3 (0.9-3.2); Lymphocytes Percent Auto 33.9 % (18.3-44.2); Mean Corpuscular HGB Conc 32.5 g/dl (32-36); Mean Corpuscular Hemoglobin 31.4 pg (26-34); Mean Corpuscular Volume 96.4 fl (80-100); Mean Platelet Volume 10.2 fl (7.4-10.4); Monocytes Absolute Auto 0.8 K/mm3 (0.1-0.6); Monocytes Percent Auto 9.8 % (2.6-8.5); Neutrophils Absolute Auto 3.4 K/mm3 (1.3-6.7); Neutrophils Percent Auto 43.1 % (45.5-73.1); Platelet Count Result 202 k/mm3 (150-375); Red Blood Count 4.21 M/mm3 (4.2-5.4); Red Cell Distribution Width 13.6 % (11.5-14.5); White Blood Count 7.8 K/mm3 (4.5-10.0)
[2023-11-09 13:05] LABS: Alanine Aminotransferase 26 U/L (6-35); Albumin Level 4.1 g/dL (3.5-5.1); Alkaline Phosphatase 92 U/L (38-126); Anion Gap 5 mmol/L (4-12); Aspartate Amino Transferase 33 U/L (14-36); Bilirubin,Total 0.5 mg/dL (0.2-1.3); Blood Urea Nitrogen 9 mg/dL (7-17); Calcium 8.7 mg/dL (8.4-10.2); Carbon Dioxide 31 mmol/L (22-30); Chloride 102 mmol/L (98-107); Cholesterol 139 mg/dL (0-200); Estimated Glomerular Filt Rate > 60; Glucose 95 mg/dL (65-110); HDL Direct 52 mg/dL; Potassium 3.3 mmol/L (3.4-5.0); Sodium 138 mmol/L (137-145); Triglycerides 159 mg/dL (<150)
[2023-11-09 13:21] LABS: LDL Cholesterol Direct 58 mg/dL
[2023-11-12 03:58] LABS: TSH QUEST 1.31 mIU/L
== END 2023-11-09 11:59 | disposition home or self-care (01) ==
PROVIDERS: PCP Family Medicine; Visit Provider Internal Medicine Cardiovascular Disease
DX: Z13.220 Encounter for screening for lipoid disorders (principal); Z86.79 Personal history of other diseases of the circulatory system
CPT/HCPCS: 36415; 80053; 80061; 84481; 85025; 86376

== ENCOUNTER 2024-12-31 11:23 | Outpatient (CLI) | payer OTHER, SELFPAY ==
--- OUTSIDE RECORDS SUMMARY | 2024-12-31 11:43 | XMS_ITS | Clinical Summary ---
Author Organization [facility] Address [address] [place] [address] Care Team Providers Care Wire Basket Maker Name Role Phone Teddy Dickey MD Primary Care Provider [phone] Source Comments [facility],non-owned Affiliates and Associated Physician Practices is amultiple site organization consisting of ambulatory clinics and hospital sitesin [place], [place], [place] and [place]. This disclosure is being madepursuant to the Care Everywhere program and may not contain all information available regarding this patient. Last updated 18.[facility] Allergies Active Allergy Reactions Criticality Noted Date Comments Azithromycin Nausea and/or Vomiting,Other Low 04/02/2015 Abd pain and diarrhea Latex Rash Medium 04/02/2015 Penicillins Other Low 05/18/2021 Family allergy- no personal reaction Medications * Be aware that medications may not be up to date on this document. Alwaysverify current medications with the patient. spironolactone (ALDACTONE) 25 MG tablet Take 25 mg by mouth once daily 1 Active ENTRESTO 24-26 MG tablet Take 1 tablet by mouth 2 times daily 1 Active pantoprazole EC (PROTONIX) 40 MG tablet Take 40 mg by mouth every morning 1 Active multivitamins (ONE A DAY) capsule Take 1 capsule by mouth once daily Active HYDROcodone-sierra taminophen (NORCO) 5-325 MG tablet Take 1 tablet by mouth every 12 hours as needed FOR PAIN 1 Active furosemide (LASIX) 20 MG tablet Take 20 mg by mouth once daily 1 Active fluticasone propionate (FLONASE) 50 MCG/ACT nasal spray SHAKE LIQUID AND USE 2 SPRAYS IN EACH NOSTRIL DAILY 1 Active etonogestrel-et hinyl estradiol (NUVARING) 0.12-0.015 MG/24HR vaginal ring INSERT 1 RING VAGINALLY MONTHLY 1 Active cetirizine (ZYRTEC) 10 MG tablet Take 10 mg by mouth once daily Active carvedilol (COREG) 12.5 MG tablet Take 12.5 mg by mouth 2 times daily with morning and evening meal 1 Active SYMBICORT 160-4.5 MCG/ACT inhaler 1 Active B Complex-C (VITAMIN B COMPLEX WITH C) Take 1 tablet by mouth once daily Active albuterol HFA (PROVENTIL; VENTOLIN; PROAIR) 108 (90 Base) MCG/ACT inhaler INHALE 1 PUFF EVERY 6 HOURS NEEDED FOR WHEEZING 1 Active Active Problems Problem Noted Date Diagnosed Date Cervicalgia 12/31/2014 Family history of thyroid disease ADHD GERD (gastroesophageal reflux disease) Hypertension CHF (congestive heart failure) Chronic back pain Asthma Arthritis Anxiety Anemia Immunizations Immunization Administration Dates Next Due INFLUENZA VACCINE, QUADR. (F LUZONE; FLULAVAL; FLUARIX; AFLURIA QUADRIVALENT; 6MO+), 0.5 ML (IIV4) 04/28/2018 Family History Medical History Relation Name Comments Diabetes - Type 2 Brother 1 CAD (Coronary Artery Disease) Brother 2 Arthritis - Osteo Father CAD (Coronary Artery Disease) Father Diabetes - Type 2 Father Hypertension Mother Thyroid Disease Paternal Aunt Thyroid Disease Paternal Cousin Relation Name Status Comments Brother 1 Alive Brother 2 Father Alive Mother Alive Paternal Aunt Paternal Cousin Social History Tobacco Use Types Packs/Day Years Used Date Smoking Tobacco: Former Smokeless Tobacco: Never Alcohol Use Standard Drinks/Week Comments Not Currently 0 (1 standard drink = 0.6 oz pur e alcohol) Comments Unknown Sex and Gender Information Value Date Recorded Sex Assigned at Not on file Legal 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 Gender Identity Not on file Sexual Orientation Not on file Last Filed Vital Signs Vital Sign Reading Time Taken Comments Blood Pressure 104/80 05/18/2021 1:23 PM VENEER JOINER Pulse 103 05/18/2021 1:23 PM VENEER JOINER Temperature 36.8 C (98.3 F) 05/18/2021 1:23 PM VENEER JOINER Respiratory Rate - - Oxygen Saturation 97% 05/18/2021 1:23 PM VENEER JOINER Inhaled Oxygen Concentration - - Weight 87 kg (191 lb 12.8 oz) 05/18/2021 1:23 PM VENEER JOINER Height 156.8 cm (5' 1.75) 05/18/2021 1:23 PM CS T Body Mass Index 35.37 05/18/2021 1:23 PM VENEER JOINER Plan of Treatment Health Maintenance Due Date Last Done Comments LIPID TESTING 1982 MAMMOGRAM 1982 HIV SCREENING 1997 HEPATITIS C SCREENING 02/16/2000 DTAP/TDAP/TD VACCINES (1 - Tdap) 2001 HEPATITIS B VACCINE (1 of 3 - 19+ 3-dose series) 2001 HPV VACCINE (1 - 3-dose SCDM series) 2009 COVID-19 VACCINE (1 - 2023-2 5 season) 2024 DEPRESSION SCREENING 06/06/2024 INFLUENZA VACCINE (#1) 2025 04/28/2018 ZOSTER VACCINE (1 of 2) 02/21/2032 HIB VACCINE Aged Out No longer eligi ble based on patient's age to complete this topic MENINGOCOCCAL (Group B) VACC INE SHARED DECISION-MAKING Aged Out No longer eligibl e based on patient's age to complete this topic MENINGOCOCCAL GROUPS A/C/Y/W VACCINE Aged Out No longer eligible b ased on patient's age to complete this topic PNEUMOCOCCAL VACCINE Aged Out No long er eligible based on patient's age to complete this topic Insurance [facility] Care Teams Wire Basket Maker Relationship Specialty Start Date End Date Teddy Dickey MD [address] [place] [id number] PCP - General 08/17/19
--- OUTSIDE RECORDS SUMMARY | 2024-12-31 11:43 | XMS_ITS | Encounter Summary ---
Author Organization [facility] Address 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 Gender Identity Not on file Sexual Orientation Not on file documented as of this encounter Plan of Treatment Not on file documented as of this encounter Procedures Procedure Name Priority Date/Time Associated Diagnosis Comments HEMOGLOBIN AND HEMATOCRIT Routine 09/29/2004 7:01 AM CDT POC , URINE Routine 09/29/2004 7:01 AM CDT documented in this encounter Results * POC , URINE (09/29/2004 7:01 AM CDT) HCG QUAL URINE Negative Negative INTER FACE SYSTEM SPECIFIC GRAVITY UA 1.015 1.001 - 1.035 INTERFACE SYSTEM 09/29/2004 7:01 AM CDT us Ajit Palencia (Excluded Provider) Jose Eduardo ZAYAS POINT OF C ARE TESTING Final Result INTERFACE SYSTEM Refer to clinic/hospital department * HEMOGLOBIN AND HEMATOCRIT (09/29/2004 7:01 AM CDT) HEMOGLOBIN 14.0 11.8 - 14.8 g/dL INTERFACE SYSTEM HEMATOCRIT 41.9 35.5 - 44.0 % INTERFACE SYSTEM 09/29/2004 7:01 AM CDT us Ajit Palencia (Excluded Provider) Jose Eduardo ZAYAS HEMATOLOGY ORDERABLES Final Result INTERFACE SYSTEM Refer to clinic/hospital department documented in this encounter Visit Diagnoses Diagnosis Lesion of ulnar nerve- Primary documented in this encounter Care Teams Director Fixed Income Relationship Specialty Start Date End Date Jaime Dickey MD [address] [place] [address] PCP - General 09/29/04 documented as of this encounter
--- OUTSIDE RECORDS SUMMARY | 2024-12-31 11:43 | XMS_ITS | Clinical Summary ---
Author Organization [facility] [address] Address [address] [place] [address] Care Team Providers Care Kiln Setter Name Role Phone Joseph Louis MD Primary Care Provider [phone] Allergies Active Allergy Reactions Criticality Noted Date Comments Azithromycin Other (See comments) Low Abd pain and diarrhea Latex Rash Medium 05/11/2019 Onion Swollen tongue High 05/11/2019 Penicillins Other (See comments) Low Family allergy- no personal reaction Medications pantoprazole DR (PROTONIX) 40 mg EC tablet Take 1 tablet (40 mg total) by mouth daily 4 9 Active cetirizine (ZyrTEC) 10 mg tablet Take 1 tablet (10 mg total) by mouth daily Active HYDROcodone-sierra taminophen (NORCO) 5-325 mg per tabletIndicatio ns:Pain Take 1 tablet by mouth every 6 (six) hours as needed Active multivitamin capsule Take 1 capsule by mouth daily Active fluticasone propionate (FLONASE) 50 mcg/actuation nasal spray Administer 1 spray into each nostril daily Active albuterol HFA (PROVENTIL HFA,VENTOLIN HFA,PROAIR HFA) 90 mcg/actuation inhaler Inhale 2 puffs every 6 (six) hours as needed for wheezing Active budesonide-form oterol (SYMBICORT) 160-4.5 mcg/actuation inhaler Inhale 2 puffs 2 (two) times a day Rinse mouth with water after use. Do not swallow. Active vitamin B complex with vitamin C tabletIndicatio ns:Vitamin Deficiency Prevention Take 1 tablet by mouth daily Active etonogestreL-et hinyl estradioL (NUVARING, ELURYNG) 0.12-0.015 mg/24 hr vaginal ring 1 Active semaglutide (Wegovy) 0.25 mg/0.5 mL auto-injector Inject 0.5 mL (0.25 mg total) under the skin every 7 days for 30 days, THEN 1 mL (0.5 mg total) every 7 days for 30 days, THEN 2 mL (1 mg total) every 7 days for 30 days, THEN 3.4 mL (1.7 mg total) every 7 days for 30 days, THEN 4.8 mL (2.4 mg total) every 7 days. 272.4 mL 4 03/08/20 25 Active Additional Information Patient not taking.Reported on 09/26/2024 sacubitriL-vals lisa (Entresto) 24-26 mg tablet TAKE 1 TABLET BY MOUTH TWICE DAILY 60 tablet 11 4 Active furosemide (LASIX) 20 mg tablet TAKE 1 TABLET(20 MG) BY MOUTH DAILY 30 tablet 11 4 Active carvediloL (COREG) 12.5 mg tablet Take 1 tablet (12.5 mg total) by mouth 2 (two) times a day with meals 180 tablet 1 4 Active spironolactone (ALDACTONE) 25 mg tablet TAKE 1 TABLET(25 MG) BY MOUTH DAILY 90 tablet 1 4 Active Active Problems Problem Noted Date Diagnosed Date Cervicalgia 12/31/2014 Surgical History Surgery Date Site/Laterality Comments OR BREAST REDUCTION Breast Surgery Reduction Procedure - 2001 (Added by TW Conv) BREAST SURGERY 06/06/2003 - 06/05/2004 Medical History Medical History Date Comments Personal history of other di seases of the digestive system History of esophageal reflux - (Added by TW Conv) Attention-deficit hyperactivity disorder Adult ADHD - (Added by TW Conv) Personal history of other di seases of the respiratory system History of asthma - (Added b y TW Conv) GERD (gastroesophageal reflux disease) 2002 Arthritis 2014 Asthma 2003 Neuromuscular disorder (HCC) 2015 Menstrual problem 07/2019 Family History Medical History Relation Name Comments Diabetes Brother 1 Filemon Family history of diabetes mellitus - (Added by TW Conv) Asthma Brother 2 Esvin N. Drug abuse Brother 2 Esvin N. Early Brother 2 Esvin N. Hypertension Brother 2 Esvin N. Family history of hypertension - (Added by TW Conv) Allergy (severe) Father Esvin Asthma Father Esvin Diabetes Father Esvin Family history of diabetes mellitus - (Added by TW Conv) Hearing loss Father Esvin Memory loss Father Esvin Alzheimer's disease Maternal Grandmother [place] Hypertension Maternal Grandmother [place] Family history of hypertension - (Added by TW Conv) Memory loss Maternal Grandmother [place] Diabetes Other Family history of diabetes mellitus - Relation: Grandparent (Added by TW Conv) Relation Name Status Comments Brother 1 Filemon Brother 2 Esvin N. Father Esvin Maternal Grandmother Rey Other Social History Tobacco Use Types Packs/Day Years Used Date Smoking Tobacco: Former Cigarettes Smokeless Tobacco: Never Alcohol Use Standard Drinks/Week Comments Not Currently 0 (1 standard drink = 0.6 oz pur e alcohol) Comments Unknown Sex and Gender Information Value Date Recorded Sex Assigned at Not on file Legal Sex Female 11:33 AM GEOSPATIAL DEVELOPER Gender Identity Female 03/24/2021 6:29 AM CDT Sexual Orientation Straight 03/24/2021 6: 29 AM CDT Obstetrics History Last Filed Vital Signs Vital Sign Reading Time Taken Comments Blood Pressure 90/62 09/26/2024 1:17 PM CDT Pulse 92 09/26/2024 1:17 PM CDT Temperature 36.7 C (98.1 F) 05/11/2019 9:35 AM GEOSPATIAL DEVELOPER Respiratory Rate 19 05/11/2019 5:30 PM GEOSPATIAL DEVELOPER Oxygen Saturation 97% 09/26/2024 1:17 PM CDT Inhaled Oxygen Concentration - - Weight 77.1 kg (170 lb) 09/26/2024 1:17 PM CDT Height 154.9 cm (5' 1) 09/26/2024 1:17 PM CDT Body Mass Index 32.12 09/26/2024 1:17 PM CDT Plan of Treatment Health Maintenance Due Date Last Done Comments Breast Cancer Screening-Mammogram 1982 Cervical Cancer Screening 1982 Depression Screening 1982 Hepatitis C Screening 1982 DTaP/Tdap/Td Vaccine (1 - Tdap) 1993 Varicella Vaccines (1 of 2 - 13+ 2-dose series) 1994 Hepatitis B Screening 02/21/2000 Regular Well Visit/Exam 18-64 02/21/2000 Pneumococcal vaccine <65 (1 of 2 - PCV) 2001 HPV Vaccines (1 - 3-dose SCDM series) 2009 Influenza Vaccine (#1) 2025 04/28/2018 Insurance [facility] Care Teams Kiln Setter Relationship Specialty Start Date End Date Joseph Louis MD [address] [place] [address] [place] [address] PCP - General Family Medicine 05/05/23
--- OUTSIDE RECORDS SUMMARY | 2024-12-31 11:43 | XMS_ITS | Referral Summary ---
Author Organization [facility] [address] Address [address] [place] [address] Care Team Providers Care Scientific Research Manager Name Role Phone Joseph Louis MD Primary Care Provider [phone] Allergies Active Allergy Reactions Criticality Noted Date [...] Problem Noted Date Diagnosed Date Cervicalgia 12/31/2014 Social History Tobacco Use Types Packs/Day Years Used Date Smoking Tobacco: Former Cigarettes Smokeless Tobacco: Never Alcohol Use Standard Drinks/Week Comments Not Currently 0 (1 standard drink = 0.6 oz pur e alcohol) Comments Unknown Sex and Gender Information Value Date Recorded Sex Assigned at Not on file Legal Sex Female 11:33 AM WINDOW FRAMER Gender Identity Female 03/24/2021 6:29 AM CDT Sexual Orientation Straight 03/24/2021 6: 29 AM CDT Last Filed Vital Signs Vital Sign Reading Time Taken Comments Blood Pressure 90/62 09/26/2024 1:17 PM CDT Pulse 92 09/26/2024 1:17 PM CDT Temperature 36.7 C (98.1 F) 05/11/2019 9:35 AM WINDOW FRAMER Respiratory Rate 19 05/11/2019 5:30 PM WINDOW FRAMER Oxygen Saturation 97% 09/26/2024 1:17 PM CDT Inhaled Oxygen Concentration - - Weight 77.1 kg (170 lb) 09/26/2024 1:17 PM CDT Height 154.9 cm (5' 1) 09/26/2024 1:17 PM CDT Body Mass Index 32.12 09/26/2024 1:17 PM CDT Plan of Treatment Not on file Insurance [facility] Care Teams Scientific Research Manager Relationship Specialty Start Date End Date Joseph Louis MD [address] [place] [address] DR [address] [place] [address] PCP - General Family Medicine 05/05/23
--- OUTSIDE RECORDS SUMMARY | 2024-12-31 11:43 | XMS_ITS | Clinical Summary ---
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 PHYSICIST [employer] Gender Identity Not on file Sexual Orientation Not on file Plan of Treatment Health Maintenance Due Date Last Done Comments HPV VACCINES (1 - 3-dose series) 1997 DTAP/TDAP/TD VACCINES (1 - Tdap) 2001 HEPATITIS B VACCINES (1 of 3 - 19+ 3-dose series) 02/04 HPV/Cotest (21-29) 2003 CERVICAL CANCER SCREENING 02/21/2012 HPV/Cotest (30-65) 02/21/2012 PAP SMEAR 02/21/2012 BREAST CANCER SCREENING 2022 INFLUENZA VACCINE (#1) 2025 Care Teams Wood Form Builder Relationship Specialty Start Date End Date Jaime Dickey MD [address] [place] [address] PCP - General 09/29/04
[2024-12-31 13:07] LABS: Hematocrit 41.6 % (37.0-47.0); Hemoglobin 13.3 g/dL (12.0-15.0); Immature Granulocyte Percent A 0.3 % (0-0.5); Lymphocytes Absolute Auto 2.36 K/mm3 (0.9-3.2); Mean Corpuscular HGB Conc 32.0 g/dl (32-36); Mean Corpuscular Hemoglobin 31.0 pg (26-34); Mean Corpuscular Volume 97.0 fl (80-100); Nucleated Red Blood Cells Absolute Auto 0.000 K/mm3 (0.0-0.012); Nucleated Red Blood Cells Perc 0.0 % (0.0-0.2); Platelet Count Result 182 k/mm3 (150-375); Red Blood Count 4.29 M/mm3 (4.2-5.4); White Blood Count 7.8 K/mm3 (4.5-10.0)
[2024-12-31 14:16] LABS: Alanine Aminotransferase 19 U/L (6-35); Albumin Level 3.8 g/dL (3.5-5.1); Alkaline Phosphatase 68 U/L (38-126); Anion Gap 6 mmol/L (4-12); Aspartate Amino Transferase 34 U/L (14-36); Bilirubin,Total 0.6 mg/dL (0.2-1.3); Blood Urea Nitrogen 7 mg/dL (7-17); Calcium 9.1 mg/dL (8.4-10.2); Carbon Dioxide 31 mmol/L (22-30); Chloride 102 mmol/L (98-107); Cholesterol 116 mg/dL (0-200); Estimated Glomerular Filt Rate > 60; Glucose 101 mg/dL (65-110); HDL Direct 50 mg/dL; Potassium 4.0 mmol/L (3.4-5.0); Sodium 139 mmol/L (137-145); Total Protein 7.1 g/dL (6.3-8.2); Triglycerides 83 mg/dL (<150)
[2024-12-31 14:48] LABS: Thyroid Stimulating Hormone 0.460 uIU/mL (0.465-4.680)
== END 2024-12-31 11:24 | disposition home or self-care (01) ==
LOC: ANHGOSHLAB 11:23
PROVIDERS: PCP Family Medicine; Visit Provider Nurse Practitioner Family
DX: F90.9 Attention-deficit hyperactivity disorder, unspecified type (principal); I50.42 Chronic combined systolic (congestive) and diastolic (congestive) heart failure; E87.6 Hypokalemia; D64.9 Anemia, unspecified; J45.41 Moderate persistent asthma with (acute) exacerbation; E55.9 Vitamin D deficiency, unspecified
CPT/HCPCS: 36415; 80053; 80061; 82306; 84443; 85025

== ENCOUNTER 2025-05-01 19:36 | Emergency (ER) | payer OTHER, SELFPAY ==
[2025-05-01] VITALS (7 sets, daily range): BP systolic 98–115; BP diastolic 66–79; PULSE 72–91; RESP 16–20; TEMP 36.4; O2SAT 98–100
--- NOTE | ~2025-05-01 | XR_ITS ---
EXAMINATION: XR chest 2V DATE: 05/01/2025 20:08 INDICATION: Hypertension. TECHNIQUE: Frontal and lateral views of the chest were obtained. COMPARISON: Chest x-ray dated 06/01/2021. FINDINGS: Heart size is normal. Lungs are clear of acute processes. IMPRESSION: 1. No acute findings. Reviewed, dictated and finalized at location [facility]. [facility] NURSE IMPRESSION: 1. No acute findings.
--- NOTE | 2025-05-01 19:39 | ECG_ITS ---
Test Date: 2025-05-01 19:52:23 Measurements Intervals Leland Rate: 67 P: 39 ND: 148 QRS: 47 QRSD: 86 T: 74 QT: 385 QTc: 407 Interpretive Statements SINUS RHYTHM NORMAL ECG No previous ECG available for comparison Electronically Signed On 05-02-2025 08:50:19 BALER by Augusto Sanchez M.D.
--- OUTSIDE RECORDS SUMMARY | 2025-05-01 19:39 | XMS_ITS | Encounter Summary ---
Author Organization [facility] Address [address] [place] [address] Care Team Providers Care Cement Based Materials Pump Tender Name Role Phone Jaime Dickey MD Primary Care Provider [phone] Encounter Details Date Type Department Care Team [...] on file Legal Sex Female 4:31 AM LUMBER ESTIMATOR Gender Identity Not on file Sexual Orientation [...] Primary documented in this encounter Care Teams Cement Based Materials Pump Tender Relationship Specialty Start Date End Date Jaime Dickey MD [address] [place] [address] PCP - General 09/29/04 documented as of this encounter
--- OUTSIDE RECORDS SUMMARY | 2025-05-01 19:39 | XMS_ITS | Clinical Summary ---
Author Organization [facility] Address [address] [place] [address] Care Team Providers Care Coroner Forensic Technician Name Role Phone Teddy Dickey MD Primary Care Provider [phone] Source Comments [facility],non-owned Affiliates and Associated Physician Practices is amultiple site organization consisting of ambulatory clinics and hospital sitesin [place], [place], [place] and [place]. This disclosure is being madepursuant to the Care Everywhere program and may not contain all information available regarding this patient. Last updated 18.[facility] Allergies Active Allergy Reactions Criticality Noted Date [...] on file Legal Sex Female 5:26 AM TIMBER SELECTOR Gender Identity Not on file Sexual Orientation Not on file Last Filed Vital Signs Vital Sign Reading Time Taken Comments Blood Pressure 104/80 05/18/2021 1:23 PM TIMBER SELECTOR Pulse 103 05/18/2021 1:23 PM TIMBER SELECTOR Temperature 36.8 C (98.3 F) 05/18/2021 1:23 PM TIMBER SELECTOR Respiratory Rate - - Oxygen Saturation 97% 05/18/2021 1:23 PM TIMBER SELECTOR Inhaled Oxygen Concentration - - Weight 87 kg (191 lb 12.8 oz) 05/18/2021 1:23 PM TIMBER SELECTOR Height 156.8 cm (5' 1.75) 05/18/2021 1:23 PM CS T Body Mass Index 35.37 05/18/2021 1:23 PM TIMBER SELECTOR Plan of Treatment Health Maintenance Due Date Last Done Comments LIPID TESTING 1982 MAMMOGRAM 1982 HIV SCREENING 1997 HEPATITIS C SCREENING 02/16/2000 DTAP/TDAP/TD VACCINES (1 - Tdap) 2001 HEPATITIS B VACCINE (1 of 3 - 19+ 3-dose series) 2001 PAP SMEAR 2003 HPV VACCINE (1 - 3-dose SCDM series) 2009 Cervical Cancer Screening 02/21/2012 PAP with HPV 02/21/2012 DEPRESSION SCREENING 06/06/2024 COVID-19 VACCINE (1 - 2024-2 6 season) 2025 INFLUENZA VACCINE (#1) 2025 04/28/2018 ZOSTER VACCINE [...] patient's age to complete this topic Insurance [place] [address] [place] [address] [facility] Care Teams Coroner Forensic Technician Relationship Specialty Start Date End Date Teddy Dickey MD [address] [place] [address] PCP - General 08/17/19
--- OUTSIDE RECORDS SUMMARY | 2025-05-01 19:39 | XMS_ITS | Clinical Summary ---
Author Organization [facility] [address] Address [address] [place] [address] Care Team Providers Care Credit Review Officer Name Role Phone Joseph Louis MD Primary Care Provider [phone] Allergies Active Allergy Reactions Criticality Noted Date Comments Azithromycin Other (See comments) Low Abd pain and diarrhea Latex Rash Medium 05/11/2019 Onion Swollen tongue High 05/11/2019 Penicillins Other (See comments) Low Family allergy- no personal reaction Medications pantoprazole DR (PROTONIX) 40 mg EC tablet Take 1 tablet (40 mg total) by mouth daily 4 01/20/20 19 Active cetirizine (ZyrTEC) 10 mg tablet Take 1 tablet (10 mg total) by mouth daily Active HYDROcodone-ac etaminophen (NORCO) 5-325 mg per tabletIndicati ons:Pain Take 1 tablet by mouth every 6 (six) hours as needed Active multivitamin capsule Take 1 capsule by mouth daily Active fluticasone propionate (FLONASE) 50 mcg/actuation nasal spray Administer 1 spray into each nostril daily Active albuterol HFA (PROVENTIL HFA,VENTOLIN HFA,PROAIR HFA) 90 mcg/actuation inhaler Inhale 2 puffs every 6 (six) hours as needed for wheezing Active budesonide-for moterol (SYMBICORT) 160-4.5 mcg/actuation inhaler Inhale 2 puffs 2 (two) times a day Rinse mouth with water after use. Do not swallow. Active vitamin B complex with vitamin C tabletIndicati ons:Vitamin Deficiency Prevention Take 1 tablet by mouth daily Active etonogestreL-e thinyl estradioL (NUVARING, ELURYNG) 0.12-0.015 mg/24 hr vaginal ring 12/22/19 21 Active semaglutide (Wegovy) 0.25 mg/0.5 mL auto-injector [...] mg total) every 7 days. 272.4 mL 11/09/19 24 Active Additional Information Patient not taking.Reported on 09/26/2024 furosemide (LASIX) 20 mg tablet TAKE 1 TABLET(20 MG) BY MOUTH DAILY 30 tablet 11 03/08/20 24 Active spironolactone (ALDACTONE) 25 mg tablet TAKE 1 TABLET(25 MG) BY MOUTH DAILY 90 tablet 1 03/18/20 25 Active sacubitriL-amie sartan (ENTRESTO) 24-26 mg tablet TAKE 1 TABLET BY MOUTH TWICE DAILY 60 tablet 11 03/18/20 25 Active carvediloL (COREG) 12.5 mg tablet TAKE 1 TABLET(12.5 MG) BY MOUTH TWICE DAILY WITH MEALS 180 tablet 1 04/11/20 25 Active carvediloL (COREG) 12.5 mg tablet Take 1 tablet (12.5 mg total) by mouth 2 (two) times a day with meals 180 tablet 1 03/12/20 24 025 Discontinued Active Problems Problem Noted Date Diagnosed Date Cervicalgia 12/31/2014 Surgical History Surgery Date Site/Laterality Comments ID BREAST REDUCTION Breast Surgery Reduction Procedure - 2001 (Added by HO Conv) BREAST SURGERY 06/06/2003 - 06/05/2004 Medical History Medical History Date Comments Personal history of other di seases of the digestive system History of esophageal reflux - (Added by HO Conv) Attention-deficit hyperactivity disorder Adult ADHD - (Added by HO Conv) Personal history of other di seases of the respiratory system History of asthma - (Added b y TW Conv) GERD (gastroesophageal reflux disease) 2003 Arthritis 2015 Asthma 2003 Neuromuscular disorder 2015 Menstrual problem 07/2019 Family History Medical [...] loss Father Esvin Alzheimer's disease Maternal Grandmother [place] Hypertension Maternal Grandmother [place] Family history of hypertension - (Added by TW Conv) Memory loss Maternal Grandmother [place] Diabetes Other Family history of diabetes mellitus [...] on file Legal Sex Female 11:33 AM THERAPIST RESPIRATORY Gender Identity Female 03/24/2021 6:29 AM CDT Sexual Orientation Straight 03/24/2021 6: 29 AM CDT Last Filed Vital Signs Vital Sign Reading Time Taken Comments Blood Pressure 90/62 09/26/2024 1:17 PM CDT Pulse 92 09/26/2024 1:17 PM CDT Temperature 36.7 C (98.1 F) 05/11/2019 9:35 AM THERAPIST RESPIRATORY Respiratory Rate 19 05/11/2019 5:30 PM THERAPIST RESPIRATORY Oxygen Saturation 97% 09/26/2024 1:17 PM CDT [...] 2009 Influenza Vaccine (#1) 2025 04/28/2018 Insurance [facility] Care Teams Credit Review Officer Relationship Specialty Start Date End Date Joseph Louis MD [facility] [place] [address] PCP - General Family Medicine 05/05/23
--- OUTSIDE RECORDS SUMMARY | 2025-05-01 19:39 | XMS_ITS | Clinical Summary ---
Author Organization [facility] Address [address] [place] [address] Care Team Providers Care Hobbies And Crafts Sales Representative Name Role Phone Unavailable Primary Care Provider Unavailabl e Social History Tobacco Use Types Packs/Day Years Used Date Smoking Tobacco: Never Assessed Comments Unknown Sex and Gender Information Value Date Recorded Sex Assigned at Not on file Legal Sex Female 7:20 PM CDT Gender Identity Not on file Sexual Orientation Not on file Plan of Treatment Health Maintenance Due Date Last Done Comments Cervical Cancer Screening Pa p Smear (Age 30 to 64) Every 3 Years 1982 Annual Physical 1985 Hepatitis C 02/21/2000 DTaP, Tdap and Td Vaccines ( 1 - Tdap) 2001 Hepatitis B Vaccines (1 of 3 - 19+ 3-dose series) 2001 HPV Vaccines (1 - 3-dose SCD M series) 2009 Cervical Cancer Screening Pa p with HPV Testing (Age 30 to 64) Every 5 Years 02/21/2012 Cervical Cancer Screening with HPV 02/21/2012 Mammogram Screening 2022 COVID-19 Vaccine (2024-2 6 season) 2025 Influenza Adult (#1) 2025 Hepatitis A Vaccines Aged Out No long er eligible based on patient's age to complete this topic Meningococcal B Vaccine Aged Out No l onger eligible based on patient's age to complete this topic Meningococcal Vaccine Aged Out No graham carolyn eligible based on patient's age to complete this topic Pneumococcal Vaccine: Pediat rics (0 to 5 Years) and At-Risk Patients (6 to 49 Years) Aged Out No longer eligible b ased on patient's age to complete this topic RSV Immunizations Under 20 Months Aged Out No longer eligible based on patient's age to complete this topic
[2025-05-01 19:56] LABS: Hematocrit 42.3 % (37.0-47.0); Hemoglobin 13.8 g/dL (12.0-15.0); Immature Granulocyte Percent A 0.1 % (0-0.5); Lymphocytes Absolute Auto 2.77 K/mm3 (0.9-3.2); Mean Corpuscular HGB Conc 32.6 g/dl (32-36); Mean Corpuscular Hemoglobin 31.2 pg (26-34); Mean Corpuscular Volume 95.5 fl (80-100); Nucleated Red Blood Cells Absolute Auto 0.000 K/mm3 (0.0-0.012); Nucleated Red Blood Cells Perc 0.0 % (0.0-0.2); Platelet Count Result 215 k/mm3 (150-375); Red Blood Count 4.43 M/mm3 (4.2-5.4); White Blood Count 9.3 K/mm3 (4.5-10.0)
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
[2025-05-01 20:49] LABS: Alanine Aminotransferase 15 U/L (6-35); Albumin Level 4.1 g/dL (3.5-5.1); Alkaline Phosphatase 73 U/L (38-126); Anion Gap 5 mmol/L (4-12); Aspartate Amino Transferase 21 U/L (14-36); Bilirubin,Total 0.6 mg/dL (0.2-1.3); Blood Urea Nitrogen 12 mg/dL (7-17); Calcium 9.1 mg/dL (8.4-10.2); Carbon Dioxide 30 mmol/L (22-30); Chloride 100 mmol/L (98-107); Estimated CRCL calculation 71 ml/min; Estimated Glomerular Filt Rate > 60; Glucose 103 mg/dL (65-110); Potassium 3.7 mmol/L (3.4-5.0); Sodium 135 mmol/L (137-145); Total Protein 7.3 g/dL (6.3-8.2)
[2025-05-01 21:04] LABS: INR 1.1; Prothrombin Time 13.7 Seconds (11.1-14.7)
[2025-05-01 21:05] LABS: Partial Thromboplastin Time 30.1 Seconds (22.3-36.8)
[2025-05-01 21:13] LABS: NT Pro B Type Natriuretic Pept < 20 pg/mL (19.9-100); Troponin I < 0.012 ng/mL (0.000-0.034)
[2025-05-01] MEDS: SODIUM CHLORIDE 0.9% IV 1,000 ML 999 ML IV CONT (21:18)
[2025-05-01 21:36] LABS: Thyroid Stimulating Hormone Reflex 0.398 uIU/mL (0.465-4.68)
--- NOTE | 2025-05-01 22:12 | PC.NURSE ---
Rn asked pt at this time if she would be able to provider urine sample at this time. Pt states she does not feel like she has to go but has water with her that may help her go. Rn asked TIRE BUSTER if pt is able to drink water to provide urine sample. TIRE BUSTER states that it is okay. RN gave pt water at this time. PPt informed to hit call light when she is ready to provide urine sample.
--- NOTE | 2025-05-01 22:50 | ECG_ITS ---
Test Date: 2025-05-01 22:41:58 Measurements Intervals [place] Rate: P: 0 CA: 0 QRS: 0 QRSD: 0 T: 0 QT: 0 QTc: 0 Interpretive Statements NORMAL SINUS RHYTHM WAS PREMATURE ATRIAL CONTRACTIONS ABNORMAL ECG Electronically Signed On 05-02-2025 08:51:48 [employer] SAL[employer] REPRESENTATIVE by Augusto Sanchez M.D.
[2025-05-01 23:11] LABS: Free T4 Free Thyroxine Reflex 1.18 ng/dL (0.78-2.19)
[2025-05-01 23:12] LABS: BEDSIDEPREGUCG Negative (Negative)
[2025-05-01 23:14] LABS: Add Urine Microscopic? YES; Appearance Urine Clear (Clear); Glucose Urine UA Negative (Negative); Leukocyte Esterase Ur Trace LEU/UL (Negative); Nitrate Urine Negative (Negative); Non Pathogenic Casts 0-2; Specific Grav Ur 1.017 (1.001-1.035)
[2025-05-01 23:19] LABS: Troponin I < 0.012 ng/mL (0.000-0.034)
[2025-05-01] MEDS: CEPHALEXIN 500 MG CAPSULE PO (23:25)
[2025-05-01 23:53] LABS: Cannabinoid Screen Urine Negative (Negative)
[2025-05-02 00:12] LABS: Total Triiodothyronine (T3) 1.05 NG/ML (0.82-1.58)
== END 2025-05-01 23:45 | disposition home or self-care (01) ==
PROVIDERS: Emergency Medicine; Emergency Provider Registered Nurse; PCP Family Medicine
DX: I95.2 Hypotension due to drugs (principal); E86.0 Dehydration; R42 Dizziness and giddiness; T50.995A Adverse effect of other drugs, medicaments and biological substances, initial encounter; I27.20 Pulmonary hypertension, unspecified; I50.40 Unspecified combined systolic (congestive) and diastolic (congestive) heart failure; I34.0 Nonrheumatic mitral (valve) insufficiency; J45.909 Unspecified asthma, uncomplicated; K21.9 Gastro-esophageal reflux disease without esophagitis; Z87.01 Personal history of pneumonia (recurrent); Z87.891 Personal history of nicotine dependence; Z79.899 Other long term (current) drug therapy; I49.1 Atrial premature depolarization
CPT/HCPCS: 36415; 71046; 80053; 80307; 81001; 81025; 83880; 84439; 84443; 84480; 84484; 85025; 85380; 85610; 85730; 87086; 93005; 96360; 99284; A9270; J7030